=== PATIENT | female | born 2000 | race Caucasian/White ===

== ENCOUNTER 2020-05-25 06:43 | Outpatient (CLI) | payer OTHER, SELFPAY ==
[2020-05-25 07:38] LABS: Basophils Percent Auto 0.6 % (0.2-1.2); Eosinophils Absolute Auto 0.1 K/mm3 (0-0.3); Eosinophils Percent Auto 1.9 % (0-4.4); Hematocrit 39.9 % (37.0-47.0); Hemoglobin 12.9 g/dL (12.0-15.0); Immature Granulocyte Absolute 0.02 K/mm3 (0.00-0.031); Immature Granulocyte Percent A 0.3 % (0-0.5); Lymphocytes Absolute Auto 1.94 K/mm3 (0.9-3.2); Lymphocytes Percent Auto 28.2 % (18.3-44.2); Mean Corpuscular HGB Conc 32.3 g/dl (32-36); Mean Corpuscular Hemoglobin 28.2 pg (26-34); Mean Corpuscular Volume 87.3 fl (80-100); Mean Platelet Volume 10.9 fl (7.4-10.4); Monocytes Absolute Auto 0.5 K/mm3 (0.1-0.6); Monocytes Percent Auto 7.4 % (2.6-8.5); Neutrophils Absolute Auto 4.3 K/mm3 (1.3-6.7); Neutrophils Percent Auto 61.6 % (45.5-73.1); Platelet Count Result 291 k/mm3 (150-375); Red Blood Count 4.57 M/mm3 (4.2-5.4); Red Cell Distribution Width 13.4 % (11.5-14.5); White Blood Count 6.9 K/mm3 (4.5-10.0)
[2020-05-25 07:48] LABS: Hemoglobin A1C 4.5 % (<5.7)
[2020-05-25 07:54] LABS: Alanine Aminotransferase 42 U/L (4-35); Albumin Level 4.6 g/dL (3.5-5.1); Alkaline Phosphatase 136 U/L (38-126); Anion Gap 13.2 mmol/L (7-16); Aspartate Amino Transferase 31 U/L (14-36); Bilirubin,Total 0.4 mg/dL (0.2-1.3); Blood Urea Nitrogen 16 mg/dL (7-17); Calcium 9.1 mg/dL (8.4-10.2); Carbon Dioxide 26 mmol/L (22-30); Chloride 104 mmol/L (98-107); Cholesterol 171 mg/dL (0-200); Estimated Glomerular Filt Rate > 60; Glucose 100 mg/dL (65-105); HDL Direct 49 mg/dL; Potassium 4.2 mmol/L (3.4-5.0); Sodium 139 mmol/L (137-145); Triglycerides 122 mg/dL (<150)
[2020-05-25 08:05] LABS: LDL Cholesterol Direct 103 mg/dL
[2020-05-25 08:30] LABS: Iron 84 ug/dL (37-170)
[2020-05-25 08:39] LABS: Percent Iron Saturation 20 % (20-50)
[2020-05-25 08:41] LABS: Vitamin D 25 Hydroxy 34.2 ng/mL
[2020-05-25 08:52] LABS: Free T4 Free Thyroxine 1.01 ng/mL (0.78-2.19)
[2020-05-25 08:59] LABS: Folic Acid 6.5 ng/mL (2.76->20)
[2020-05-28 07:15] LABS: Thyroid Peroxidase Antibodies 24 IU/mL (<9)
== END 2020-05-25 06:44 | disposition home or self-care (01) ==
PROVIDERS: PCP Physician Assistant; Visit Provider Physician Assistant
DX: R53.83 Other fatigue (principal); Z13.220 Encounter for screening for lipoid disorders; Z13.1 Encounter for screening for diabetes mellitus
CPT/HCPCS: 36415; 80053; 80061; 82306; 82607; 82728; 82746; 83036; 83540; 83550; 84439; 84443; 85025; 86038; 86376

== ENCOUNTER 2020-07-02 09:22 | Outpatient (CLI) | payer OTHER, SELFPAY ==
[2020-07-02 10:02] LABS: Glucose 98 mg/dL (65-105)
[2020-07-07 05:34] LABS: Prolactin 7.3 ng/mL (***)
[2020-07-07 15:22] LABS: Testosterone Total 63 ng/dL (2-45)
[2020-07-08 02:44] LABS: Insulin Level Total 17.5 uIU/mL (<=19.6)
[2020-07-08 20:27] LABS: Estradiol, Ultrasensitive 54 pg/mL
== END 2020-07-02 09:23 | disposition home or self-care (01) ==
PROVIDERS: PCP Physician Assistant; Visit Provider Obstetrics & Gynecology
DX: N91.5 Oligomenorrhea, unspecified (principal)
CPT/HCPCS: 36415; 82670; 82947; 83001; 83525; 84146; 84402; 84403

== ENCOUNTER → 2021-11-14 01:58 | Outpatient (CLI) | payer OTHER, SELFPAY ==
[2021-11-14 19:53] LABS: SARS-CoV-2 RNA PCR Negative
== END ==
PROVIDERS: PCP Physician Assistant; Visit Provider Physician Assistant
DX: Z20.822 Contact with and (suspected) exposure to COVID-19 (principal)
CPT/HCPCS: C9803; U0003; U0005

== ENCOUNTER 2021-12-29 15:21 | Outpatient (CLI) | payer OTHER, SELFPAY ==
[2021-12-29 17:24] LABS: Basophils Percent Auto 0.4 % (0.2-1.2); Eosinophils Absolute Auto 0.1 K/mm3 (0-0.3); Eosinophils Percent Auto 1.3 % (0-4.4); Hematocrit 39.9 % (37.0-47.0); Hemoglobin 12.6 g/dL (12.0-15.0); Immature Granulocyte Absolute 0.03 K/mm3 (0.00-0.031); Immature Granulocyte Percent A 0.3 % (0-0.5); Lymphocytes Absolute Auto 1.94 K/mm3 (0.9-3.2); Lymphocytes Percent Auto 20.9 % (18.3-44.2); Mean Corpuscular HGB Conc 31.6 g/dl (32-36); Mean Corpuscular Hemoglobin 27.2 pg (26-34); Mean Platelet Volume 10.5 fl (7.4-10.4); Monocytes Absolute Auto 0.5 K/mm3 (0.1-0.6); Monocytes Percent Auto 5.3 % (2.6-8.5); Neutrophils Absolute Auto 6.7 K/mm3 (1.3-6.7); Neutrophils Percent Auto 71.8 % (45.5-73.1); Platelet Count Result 365 k/mm3 (150-375); Red Blood Count 4.64 M/mm3 (4.2-5.4); Red Cell Distribution Width 14.5 % (11.5-14.5); White Blood Count 9.3 K/mm3 (4.5-10.0)
[2021-12-29 17:37] LABS: Alanine Aminotransferase 42 U/L (4-35); Albumin Level 4.9 g/dL (3.5-5.1); Alkaline Phosphatase 172 U/L (38-126); Amylase 48 U/L (30-110); Anion Gap 9 mmol/L (8-16); Aspartate Amino Transferase 36 U/L (14-36); Bilirubin,Total 0.6 mg/dL (0.2-1.3); Blood Urea Nitrogen 11 mg/dL (7-17); Calcium 9.2 mg/dL (8.4-10.2); Carbon Dioxide 27 mmol/L (22-30); Chloride 104 mmol/L (98-107); Cholesterol 200 mg/dL (0-200); Estimated Glomerular Filt Rate > 60; Glucose 74 mg/dL (65-110); HDL Direct 55 mg/dL; Lipase 28 U/L (23-300); Sodium 140 mmol/L (137-145); Triglycerides 90 mg/dL (<150)
[2021-12-29 17:42] LABS: Hemoglobin A1C 4.7 % (<5.7)
[2021-12-29 17:49] LABS: LDL Cholesterol Direct 115 mg/dL
[2021-12-29 18:26] LABS: Free T4 Free Thyroxine 1.36 ng/mL (0.78-2.19)
== END 2021-12-29 15:22 | disposition home or self-care (01) ==
LOC: ANHLAB 15:24
PROVIDERS: PCP Physician Assistant; Visit Provider Physician Assistant
DX: R10.11 Right upper quadrant pain (principal); Z13.220 Encounter for screening for lipoid disorders; Z79.899 Other long term (current) drug therapy; Z13.1 Encounter for screening for diabetes mellitus
CPT/HCPCS: 36415; 80053; 80061; 82150; 83036; 83690; 84439; 84443; 85025

== ENCOUNTER 2022-01-01 15:10 | Outpatient (CLI) | payer OTHER, SELFPAY ==
--- NOTE | ~2022-01-01 | US_ITS ---
EXAMINATION: US abdomen limited EXAM DATE: 01/01/2022 15:41 INDICATION: RUQ pain TECHNIQUE: Multiple grayscale and Doppler images of the abdomen right upper quadrant were obtained (b y a technologist who performed the scan) and subsequently reviewed. Comparison is made to prior exami nation from 01/13/2012. FINDINGS: The pancreatic head and body are normal in appearance. The pancreatic tail is not visualized. The l iver has normal echogenicity and contour. There are no focal liver lesions identified. There is no evidence of intrahepatic biliary duct dilation. Portal venous flow was seen in the hepatopedal, nor mal direction and has normal Doppler waveform. No right-sided hydronephrosis. Common bile duct measures 6 mm, which is normal. The gallbladder wall is normal in thickness, with ex pected amount of distention. No sonographic evidence of pericholecystic fluid. There is no cholelit hiases. Technologist performing exam reports patient did not demonstrate sonographic Koo's sign. Please note that this sign is less reliable in patients who have received pain medication. IMPRESSION: Unremarkable abdominal ultrasound exam. Reviewed, dictated and finalized at location A. [employer]GER
== END 2022-01-01 15:11 | disposition home or self-care (01) ==
LOC: ANHIMG 15:15
PROVIDERS: PCP Physician Assistant; Visit Provider Physician Assistant
DX: R10.11 Right upper quadrant pain (principal)
CPT/HCPCS: 76705

== ENCOUNTER 2023-01-18 08:21 | Outpatient (CLI) | payer OTHER, SELFPAY ==
[2023-01-18 19:10] LABS: Basophils Percent Auto 0.4 % (0.2-1.2); Eosinophils Absolute Auto 0.1 K/mm3 (0-0.3); Eosinophils Percent Auto 1.5 % (0-4.4); Hematocrit 34.9 % (37.0-47.0); Hemoglobin 10.4 g/dL (12.0-15.0); Immature Granulocyte Absolute 0.02 K/mm3 (0.00-0.031); Immature Granulocyte Percent A 0.3 % (0-0.5); Lymphocytes Absolute Auto 2.02 K/mm3 (0.9-3.2); Lymphocytes Percent Auto 27.6 % (18.3-44.2); Mean Corpuscular HGB Conc 29.8 g/dl (32-36); Mean Corpuscular Hemoglobin 26.1 pg (26-34); Mean Corpuscular Volume 87.5 fl (80-100); Mean Platelet Volume 10.5 fl (7.4-10.4); Monocytes Absolute Auto 0.5 K/mm3 (0.1-0.6); Monocytes Percent Auto 7.1 % (2.6-8.5); Neutrophils Absolute Auto 4.6 K/mm3 (1.3-6.7); Neutrophils Percent Auto 63.1 % (45.5-73.1); Platelet Count Result 371 k/mm3 (150-375); Red Blood Count 3.99 M/mm3 (4.2-5.4); Red Cell Distribution Width 15.9 % (11.5-14.5); White Blood Count 7.3 K/mm3 (4.5-10.0)
[2023-01-18 19:17] LABS: Alanine Aminotransferase 59 U/L (6-35); Albumin Level 4.4 g/dL (3.5-5.1); Alkaline Phosphatase 150 U/L (38-126); Anion Gap 7 mmol/L (8-16); Aspartate Amino Transferase 53 U/L (14-36); Bilirubin,Total 0.8 mg/dL (0.2-1.3); Blood Urea Nitrogen 16 mg/dL (7-17); Calcium 8.9 mg/dL (8.4-10.2); Carbon Dioxide 28 mmol/L (22-30); Chloride 104 mmol/L (98-107); Cholesterol 188 mg/dL (0-200); Estimated Glomerular Filt Rate > 60; Glucose 103 mg/dL (65-110); HDL Direct 48 mg/dL; Potassium 4.3 mmol/L (3.4-5.0); Sodium 139 mmol/L (137-145); Triglycerides 126 mg/dL (<150)
[2023-01-18 19:28] LABS: LDL Cholesterol Direct 108 mg/dL
[2023-01-18 19:29] LABS: Vitamin D 25 Hydroxy 17.5 ng/mL
[2023-01-18 19:33] LABS: Hemoglobin A1C 4.8 % (<5.7); Hypochromasia 1+ (NORMAL); Platelet Estimate Adequate (Adequate); Schistocytes None Seen (NORMAL)
[2023-01-18 19:34] LABS: Anisocytosis 2+ (NORMAL)
[2023-01-18 19:36] LABS: Appearance Urine Clear (Clear); Bilirubin Urine Negative (Negative); Blood Urine 3+ (Negative); Color Urine Yellow (Yellow); Glucose Urine UA Negative (Negative); Ketones Urine Negative (Negative); Leukocyte Esterase Ur 1+ LEU/UL (NEGATIVE); Nitrate Urine Negative (Negative); Protein Urine 1+ mg/dL (Negative); Specific Grav Ur >= 1.030 (1.001-1.035); Urobilinogen Urine 0.2 mg/dL (<2.0); pH Urine 5.5 (5.0-9.0)
[2023-01-18 19:37] LABS: Add Urine Microscopic? YES
[2023-01-18 19:39] LABS: WBC Urine 51-100 /hpf (0-3)
[2023-01-18 19:40] LABS: Squamous Epithelial Cell Urine Moderate /hpf (Few)
[2023-01-18 19:41] LABS: Bacteria Urine 2+ /hpf
[2023-01-22 20:38] LABS: Insulin Level Total 26.8 uIU/mL (<=19.6)
== END 2023-01-18 08:22 | disposition home or self-care (01) ==
LOC: ANHBWCLAB 08:25
PROVIDERS: PCP Physician Assistant; Visit Provider Physician Assistant
DX: E55.9 Vitamin D deficiency, unspecified (principal); Z13.220 Encounter for screening for lipoid disorders; E66.01 Morbid (severe) obesity due to excess calories; Z79.899 Other long term (current) drug therapy
CPT/HCPCS: 36415; 80053; 80061; 81001; 82306; 83036; 83525; 84443; 85025

== ENCOUNTER 2023-06-27 16:09 | Outpatient (CLI) | payer OTHER, SELFPAY ==
--- NOTE | ~2023-06-27 | US_ITS ---
EXAMINATION: US pelvic complete w TV DATE: 06/27/2023 16:54 INDICATION: Menorrhagia. TECHNIQUE: Multiple transabdominal and transvaginal sonographic images of the pelvis were obtained. COMPARISON: None. FINDINGS: TRANSABDOMINAL ULTRASOUND: The uterus measures 8.2 x 2.8 x 3.5 cm. There is no free fluid in the pelvis. TRANSVAGINAL ULTRASOUND: The endometrial complex measures 11 mm in thickness. There are nabothian cysts in the cervix. The rig ht ovary measures 4.7 x 4.2 x 2.1 cm. The left ovary measures 3.3 x 2.5 x 2.9 cm. There is normal vas cular flow in the ovaries. IMPRESSION: 1. No etiology for menorrhagia. Reviewed, dictated and finalized at location E.
== END 2023-06-27 16:10 | disposition home or self-care (01) ==
PROVIDERS: PCP Physician Assistant; Visit Provider Obstetrics & Gynecology
DX: N92.1 Excessive and frequent menstruation with irregular cycle (principal)
CPT/HCPCS: 76830; 76856

== ENCOUNTER 2023-08-16 14:06 | Outpatient (CLI) | payer OTHER, SELFPAY ==
[2023-08-16 18:48] LABS: Basophils Percent Auto 0.4 % (0.2-1.2); Eosinophils Absolute Auto 0.1 K/mm3 (0-0.3); Eosinophils Percent Auto 1.5 % (0-4.4); Hemoglobin 10.4 g/dL (12.0-15.0); Immature Granulocyte Absolute 0.04 K/mm3 (0.00-0.031); Immature Granulocyte Percent A 0.4 % (0-0.5); Lymphocytes Absolute Auto 1.84 K/mm3 (0.9-3.2); Lymphocytes Percent Auto 20.1 % (18.3-44.2); Mean Corpuscular HGB Conc 28.9 g/dl (32-36); Mean Corpuscular Hemoglobin 23.3 pg (26-34); Mean Corpuscular Volume 80.5 fl (80-100); Mean Platelet Volume 10.8 fl (7.4-10.4); Monocytes Absolute Auto 0.4 K/mm3 (0.1-0.6); Monocytes Percent Auto 4.7 % (2.6-8.5); Neutrophils Absolute Auto 6.7 K/mm3 (1.3-6.7); Neutrophils Percent Auto 72.9 % (45.5-73.1); Platelet Count Result 438 k/mm3 (150-375); Red Blood Count 4.47 M/mm3 (4.2-5.4); Red Cell Distribution Width 16.9 % (11.5-14.5); White Blood Count 9.2 K/mm3 (4.5-10.0)
[2023-08-16 18:55] LABS: Alanine Aminotransferase 38 U/L (6-35); Albumin Level 4.6 g/dL (3.5-5.1); Alkaline Phosphatase 128 U/L (38-126); Anion Gap 9 mmol/L (8-16); Aspartate Amino Transferase 51 U/L (14-36); Bilirubin,Total 0.6 mg/dL (0.2-1.3); Blood Urea Nitrogen 14 mg/dL (7-17); Calcium 9.2 mg/dL (8.4-10.2); Carbon Dioxide 25 mmol/L (22-30); Chloride 104 mmol/L (98-107); Estimated Glomerular Filt Rate > 60; Glucose 125 mg/dL (65-110); Potassium 3.8 mmol/L (3.4-5.0); Sodium 138 mmol/L (137-145)
[2023-08-16 19:01] LABS: Iron 42 ug/dL (37-170)
[2023-08-16 19:10] LABS: Percent Iron Saturation 9 % (20-50)
[2023-08-16 19:37] LABS: Ferritin 7.65 ng/mL (6.24-137)
[2023-08-16 19:39] LABS: Platelet Estimate Increased (Adequate)
[2023-08-16 19:40] LABS: Anisocytosis 3+ (NORMAL); Schistocytes None Seen (NORMAL)
[2023-08-16 19:41] LABS: Hypochromasia 1+ (NORMAL)
== END 2023-08-16 14:07 | disposition home or self-care (01) ==
LOC: ANHBWCLAB 14:09
PROVIDERS: PCP Physician Assistant; Referring Provider Obstetrics & Gynecology; Visit Provider Physician Assistant
DX: D64.9 Anemia, unspecified (principal); Z79.899 Other long term (current) drug therapy
CPT/HCPCS: 36415; 80053; 82728; 83540; 83550; 85025

== ENCOUNTER 2023-09-04 09:01 | Outpatient (CLI) | payer OTHER, SELFPAY ==
--- NOTE | 2023-09-25 19:47 | WPDHOMESLEEP ---
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 She wakes herself up gasping for breath. Her problem started around 2019. She frequently awakens from sleep short of breath. She constantly wakes at night with heartburn, belching or coughing.??She occasionally snores, occasionally snores loudly enough that others complain. She frequently has trouble sleeping when she has a cold. She frequently wakes up gasping for breath during the night. She rarely has breathing problems at night. She frequently sweats excessively at night. She frequently notices her heart pounding or beating irregularly during the night. She constantly falls asleep during the day. She never falls asleep involuntarily, never falls asleep while driving. She never experiences loss of muscle tone with strong emotion. she frequently has daytime difficulties due to excessive sleepiness. She never feels paralyzed on waking or falling asleep. She occasionally experiences vivid dreams upon waking or falling asleep. She never feels afraid of going to sleep. She frequently has nightmares. She occasionally recalls her dreams. She occasionally has thoughts racing through her mind. She constantly feels sad or depressed. She constantly feels anxiety. She never notices parts of her body jerk. She never kicks during the night. She occasionally feels crawling or aching feelings in her legs. She occasionally feels leg pain at night. She rarely has morning jaw pain, and frequently grinds her teeth at night. She frequently feels bothered by pain during the day, is never awakened by pain during the night. She frequently wakes up feeling stiff in the morning, frequently wakes feeling sore or achy in the morning. She frequently awakens with pain in her neck, spine, or joints. She takes antacids regularly. Normal bedtime is variable, and the amount of time it takes her to fall asleep is also variable. She typically wakes up between 2 and 3 times during the night for a few minutes, often feels panic while awake. She drives to calm herself down and return to sleep. She reports getting between 3 and 8 hours of sleep per night. Her wake time is 5:30 a.m.. On weekends her wake time is 9:00 a.m.. At work, she wakes up 2 hearing calls or other people moving around in the building. On her days off she gets to sleep at home during the day following her shift. She takes naps in the afternoon or evening. A short nap lasting 10-15 minutes is not refreshing. She is usually drowsy on waking. She feels better in the evening compared to other times of day. Habits:??Tobacco: former smoker Caffeine: 1 serving per day. Alcohol: none Recreational substances: none PMFSH Past Medical History Medical History ADD (attention deficit disorder) Anxiety Asthma Depression Disorder of thyroid GERD (gastroesophageal reflux disease) H/O Jessie thyroiditis Hypertension PCOS (polycystic ovarian syndrome) Pneumonia Scoliosis Lagos-Antwan syndrome Surgical History Surgical History Hx of tonsillectomy [place] teeth removed x4 Family History Family History Mother Hypertension Grandparent Diabetes mellitus Cerebrovascular accident Hypertension Other Family history of malignant neoplasm Social History Social History Smoking status: Never sm
[2023-09-25 20:22] VITALS: BMI 54.7
== END 2023-09-05 09:44 | disposition home or self-care (01) ==
LOC: ANHCSM 09:04
PROVIDERS: PCP Physician Assistant
DX: G47.30 Sleep apnea, unspecified (principal); G47.10 Hypersomnia, unspecified; K21.9 Gastro-esophageal reflux disease without esophagitis; I10 Essential (primary) hypertension; J45.909 Unspecified asthma, uncomplicated
CPT/HCPCS: 95800

== ENCOUNTER 2025-04-05 13:19 | Outpatient (CLI) | payer OTHER, SELFPAY ==
--- OUTSIDE RECORDS SUMMARY | 2025-04-05 14:42 | XMS_ITS | Data Portability ---
[facility] Address [address] [place] [address] Care Team Providers Care Pumpman Name Role Phone LEANNA WATSON Primary Care Provider Unavailab le Assessment No assessment recorded. Plan of Treatment Reminders Order Date Submit Date Provider Last Modified By Organization Details Last Modified Time Details Appointments ANY 15 2024 10:15A M FRANCES Jaen Baptiste Not available Not available Not available Lab None recorded. Referral None recorded. Procedures home sleep testing (PROC) - last home study had little data due to inability to fall asleep. this time, lunesta will be used. 2023 024 [facility], [address] [place], [address], 01/07/2025 10:19:18 Surgeries None recorded. Imaging XR, wrist, 3 or more view [address], [address], 09/21/2024 09:40:14 Medication Orders Wegovy 0.25 mg/0.5 mL subcutane ous pen injector 2023 025 [id number], [address], [place], [id number], 04/01/2025 11:56:33 Lunesta 3 mg tablet 2023 024 [email or web address] [facility] #[id number], [address], [place], [id number], 04/20/2024 14:45:13 Patient TargetsNo targets recorded. Patient Instructions Encounter Date Encounter Id Patient Instructions Last Modified By Organization Details Last Modified Time 04/09/2024 [id number] A healthy lifestyle: care instructions [email or web address] Not available 04/09/2024 09:57:41 Reason for Referral None Reported. Problems Name Problem SNOMED Code Status Onset Date Resolution Date Notes Provider Name and Address Organization Details Recorded Time Body mass index 40+ - severely obese 673659181 Active 2023 FRANCES Jean Baptiste Attn: [employer],[address] [place], [address], [place] - [facility] 4 09:46:24 Obesity 502734297 Active 2023 FRANCES Jean Baptiste Attn: [employer],[address] [place], [address], [place] [facility] 4 09:46:25 Vitamin D deficiency 87954826 Active 2023 FRANCES Jean Baptiste Attn: [employer],[address] [place], [address], [place] [facility] 4 09:46:26 Obstructive sleep apnea syndrome 48801760 Active 2023 FRANCES Jean Baptiste Attn: [employer],[address] [place], [address], [place] [facility] 4 09:46:26 Benign essential hypertension 3816984 Active 2023 FRANCES Jean Baptiste Attn: [employer],[address] [place], [address], [place] [facility] 4 09:46:27 Wrist joint painful on movement 058446638 Active 2023 FRANCES Jean Baptiste Attn: [employer],[address] [place], [address], [place] [facility] 11:42:58 Insomnia 980836409 Active 2023 FRANCES Jean Baptiste Attn: [employer],[address] [facility], [place], [address], [facility] 11:44:43 Problem Notes None recorded. Procedures Surgical History Date Name Laterality Status Provider Name and Address Organization Details Recorded Time Tonsillectomy completed Ayesha Reis MA [facility] 04/09/2024 10:21:42 Imaging Results None recorded. Procedure Notes None recorded. Medical Equipment None Reported. Allergies No known drug allergies Medications Name Sig Start Date Stop Date Status Note LastModified by Organization Details LastModified Time valsartan 320 mg tablet Take 1 tablet every day by oral route. 2024 active Not Available Not Available Not Avai lable metoprolo l succinate ER 25 mg tablet,ex tended release 24 hr TAKE 1 TABLET BY MOUTH DAILY active Not Available Not Available No t Available ergocalci ferol (vitamin D2) 1,250 mcg (50,000 unit) capsule Take 1 capsule every week by oral route for 28 days. active needs refilled Not Available Not Available Not Available ketoconaz ole 2 % topical cream APPLY TO AFFECTED AREA OF THE NECK ONCE DAILY NEEDED ONLY 04/01 completed Not Available Not Available Not Available amoxicill in 875 mg-potass ium clavulana te 125 mg tablet TAKE 1 TABLET BY MOUTH EVERY 12 HOURS 04/01 completed Not Available Not Available Not Available valsartan 160 mg tablet TAKE 1 TABLET BY MOUTH DAILY active Not Available Not Available No t Available eszopiclo ne 2 mg tablet one tab po qhs PRN active Not Available Not Available No t Available Lunesta 3 mg tablet one tab po qhs PRN 04/20 completed Not Available Not Available Not Available ferrous gluconate 324 mg (37.5 mg iron) tablet 1 tab p.o. daily 2023 active prn Not Available Not Available Not Avai lable Wegovy 0.25 mg/0.5 mL subcutane ous pen injector Inject by subcutan eous route for 28 days. active Not Available Not Available No t Available Vitals Date Recorded Respiratory rate Systolic blood pressure Diastolic blood pressure Provider Name and Address Organization Details Last Updated DateTime 04/01/2025 18 /min 150 mm[Hg] 96 mm[Hg] FRANCES Jean Baptiste Attn: Accounting, [address] [facility], [place], [address], [facility] 04/01/2025 12:32:06 Date Recorded Body height Body mass index (BMI) Body weight Oxygen saturation Oxygen saturation in Arterial blood by Pulse oximetry Heart rate Systolic blood pressure Diastolic blood pressure Provider Name and Address Organization Details Last Updated DateTime 172.72 cm 58.2 kg/m2 408268. 88 g 97 % 97 % 98 /min 162 mm[Hg] 90 mm[Hg] Ayesha Reis MA [facility] 11:59:01 Date Recorded Body height Body mass index (BMI) Body weight Respiratory rate Oxygen saturation Oxygen saturation in Arterial blood by Pulse oximetry Heart rate Systolic blood pressure Diastolic blood pressure Provider Name and Address Organization Details Last Updated DateTime 172.72 cm 59 kg/m2 498183. 92 g 20 /min 97 % 97 % 88 /min 142 mm[Hg] 98 mm[Hg] Ayesha Reis MA [facility] 09:29:45 Social History Question Answer Notes LastModified by Organizat ion Details LastModified Time Tobacco Smoking Status Never Smoker Ayesha Reis MA null, [facility] 04/09/2024 09:25:45 Do You Have An Advance Directive? No Information not available 04/09/2024 Are You Blind Or Do You Have Difficulty Seeing? No Contacts Information not available 04/09/2024 What Is Your Level Of Caffeine Consumption? Moderate Information not available 04/09/2024 In The 14 Days Before Symptom Onset, Have You Had Close Contact With A Laboratory-confir med COVID-19 While That Case Was Ill? No Information not available 04/08/2024 In The 14 Days Before Symptom Onset, Have You Had Close Contact With A Person Who Is Under Investigation For COVID-19 While That Person Was Ill? No Information not available 04/08/2024 Have You Been To An Area Known To Be High Risk For COVID-19? No Information not available 04/08/2024 Are You Deaf Or Do You Have Serious Difficulty Hearing? No Hearing Damage But Nothing Diagnosed Information not available 04/09/2024 What Type Of Diet Are You Following? REGULAR Information not available 04/09/2024 Are There Any Guns Present In Your Home? No Information not available 04/09/2024 What Was The Date Of Your Most Recent Tobacco Screening? 04/01/2025 Information not available 04/01/2025 Do You Use Your Seat Belt Or Car Seat Routinely? Yes Information not available 04/08/2024 Do You Have Smoke And Carbon Monoxide Detectors In Your Home? Yes Information not available 04/08/2024 Do You Use Sunscreen Routinely? Yes Information not available 04/09/2024 Has Tobacco Cessation Counseling Been Provided? Yes Information not available 04/08/2024 On What Date Was Tobacco Cessation Counseling Provided? 04/01/2025 Information not available 04/01/2025 Sex: Female Functional Status Question Answer Note LastModified by Organizat ion Details LastModified Time Do you use any illicit or recreational drugs? No Information not available 04/09/2024 Do you or have you ever used any other forms of tobacco or nicotine? No Information not available 04/09/2024 What is your level of alcohol consumption? None Information not available 04/09/2024 Are you currently employed? Yes Information not available 04/09/2024 Are you able to care for yourself? Yes Information not available 04/08/2024 Mental Status None recorded. Family History Relationship Description Onset Age of this Age Resolved Age Notes LastModified by Organization Details LastModified Time Mother Asthma [email or web address] Not available 04/09/2024 10:22:18 Mother Heart disease [email or web address] Not available 2023 10:22:23 Mother Hypertensive disorder [email or web address] Not available 2023 10:22:27 Medical History Condition Response Coronary Artery Disease N Other N High Blood Pressure Y Atrial Fibrillation N Kidney or Bladder Problems N Thyroid Problems N GI Problems N Depression N COPD N Blood Clots N Skin Problems N Anemia N Heart Attack ([place]) N Anxiety Disorder N Diabetes N Muscle, Joint, or Bone Problems N Seizures/Epilepsy N Acid Reflux (GERD) N Cancer N Stroke N Asthma N Allergies N High Cholesterol N Hepatitis N Liver Disease N Headaches N Heart Failure N Osteoporosis N Gynecological History Statement/Question Response Menses Monthly Y Duration of Flow (days) Date of LMP 04/01/2025 LMP Definite Obstetrics History GPAL:G 0 P 0 0 0 0 Immunizations Vaccine Type Date Status Note Provider Demian e and Address Organization Details Recorded Time COVID-19, mRNA, LNP-S, PF, 30 mcg/0.3 mL dose 11/04/2020 completed MALIK Thom[place], [place] [facility] 08/07/2024 15:51:45 COVID-19, mRNA, LNP-S, PF, 30 mcg/0.3 mL dose 09/14/2021 [place] MALIK [place], [place] [facility] 08/07/2024 15:51:45 COVID-19, mRNA, LNP-S, PF, 30 mcg/0.3 mL dose 10/14/2020 completed MALIK [place], [place] [facility] 08/07/2024 15:51:45 Influenza, split virus, quadrivalent, PF 08/11/2020 completed MALIK Thom[place], [place] [facility] 08/07/2024 15:51:45 Past Encounters Encounter ID Performer Location Encounter Start Date Encounter Closed Date Diagnosis/Indication Diagnosis SNOMED-CT Code Diagnosis ICD10 Code Diagnosis Note [id number] Fuentes Michael MD [facility] [place] [address] [place] [address] 04/09/2024 09:07:31 04/09/2024 11:02:32 Obesity 164066221 E66.8 discussed healthy diet, exercise, controllin g carbohydra tammy and added sugars in the diet Body mass index 40+ - severely obese 823516831 Z68.43 start wegovy injectable therapy. no personal or family hx of Medullary thyroid cancer or MEN conditions . Benign ess ential hypertension 6693893 I10 BP is 142/98 on dual agents of metoprolol ER 25mg daily and valsartan 160mg daily . she will monitor her pressures at work and report back if she's running this level or higher. she is so fatigued right now and feels her bp is up from that stress. Obstructiv e sleep apnea syndrome 47419088 G47.33 refer for home sleep study testing. 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 Wrist join t painful on movement 499639974 M25.539 check xray left wrist for baseline evaluation . [id number] Fuentes Michael MD [facility] [place] [address] [facility] [address] [place] [address] 04/01/2025 11:40:33 04/01/2025 13:54:13 Benign essential hypertension 0731377 I10 boost to 320mg daily Obstructiv e sleep apnea syndrome 21810147 G47.33 refer for home sleep study testing. plans for zepbound therapy once sleep study results are obtained. Insomnia 912993358 G47.0 0 start lunesta 3mg qhs for sleep to help with shift worker syndrome and apnea while she gets new sleep study ordered. Vitamin D deficiency 347 05480 E55.9 continue high dose weekly Rx Body mass index 40+ - severely obese 046404546 Z68.43 Cholesterol screening 27 3620618 Z13.220 Diabetes m ellitus screening 787433713 Z13.1 Long-term current use of drug therapy 180009461 Z79.899 [facility] 036246297 Z00.00 Obese class III 33025201 5 E66.813 Health Concerns Section Related Observation LastModified by Organization Detai ls LastModified Time None Recorded Concern Status LastModified by Organization Details LastModified Time None Recorded Advance Directives Directive N: Payers Encounter Date Sequence Insurance Name Policy Number Policy Barrett Covered Member ID Barrett Member ID Guarantor Name 04/09/2024 2 [employer] (PPO) [id number] Edilma Puente [id number] Francisco Puente 04/09/2024 1 [employer]O [id number] Francisco Puente [id number] Francisco Puente Notes Date Note Type Note Provider Name and Address Organization Details Recorded Time 4 text/html HypertensionReported bypatient.Notes:pt is taking valsartan 160mg daily and metoprolol ER 25mg daily.InsomniaReported bypatient.Quality:symptom s worse in the evening Severity:worsening; severe Duration:frequent Modifying Factors:shift worker. Associated Symptoms:snoring;sleep apneaObstructive Sleep Apnea F/UReported bypatient.Notes:pt needs sleep study ordered again. she is so fatigued and tired during her day and witnessed apnea. she isn't able to lose weight she needs to. she is tired but shift worker syndrome makes sleep often difficult. Left wrist pain , worse with movement. newer onset. 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 FRANCES Jean Baptiste Attn: Accounting,[address] [place], [address], [facility] 04/30/2024 11:46:04 OBGyn Episode No OBEpisode recorded.
--- OUTSIDE RECORDS SUMMARY | 2025-04-05 14:42 | XMS_ITS | Data Portability ---
Author Organization [place] - [facility], Main Office Address [address] [place] [address] Assessment No assessment recorded. Plan of Treatment Reminders Order Date Submit Date Provider Last Modified By Organization Details Last Modified Time Details Appointments None recorded. Lab CBC w/ auto diff 2022 023 [facility] (Lab), [address] [place] [address], [id number], 3 10:40:26 CMP, serum or plasma 2022 023 [facility] (Lab), [address] [place] [address], [id number], 3 10:40:26 urinalysis, dipstick [address] (Lab), [address] [place] [address], [address], 3 11:13:11 TSH, serum or plasma [address] (Lab), [address] [place] [address], [id number], 3 11:13:11 insulin, serum [address] (Lab), [address] [place] [address], [id number], 3 11:13:12 lipid panel, serum [address] (Lab), [address] [place] [address], [place], [address], 3 11:13:12 HbA1c (hemoglobin A1c), blood 2022 023 [email or web address] 4 [facility] (Lab), [address] [address], [place], [address], 3 11:13:12 Referral 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 Surgeries None recorded. Imaging home sleep study - Per [facility] no auth required REF # [id number] 2022 023 [facility] ([facility]), [address] [facility], [place], [address], 3 16:45:26 Medication Orders valsartan 160 mg tablet 2022 023 [facility] #[id number], [address], [place], [id number], 3 12:00:07 ferrous gluconate 324 mg (38 mg iron) tablet 2022 023 [facility] #[id number], [address], [place], [id number], 3 12:00:26 ketoconazol e 2 % topical cream 2022 023 [facility] #[id number], [address], [place], [id number], 3 11:56:04 metoprolol succinate ER 25 mg tablet,exte nded release 24 hr 2022 023 [facility] #[id number], [address] [place], [place], [id number], 3 11:56:03 Patient TargetsNo targets recorded. Patient InstructionsNo instructions recorded. 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 [email or web address] [id number] [facility] ([facility]) [address] [place] [address] [place] [address], [phone], 12/26/2022 20:39:06 10/03/20 23 09/04/2023 home sleep study No observ ation record ed. [email or web address] [address], [address], 11/14/2023 10:11:21 Result Notes None recorded. Problems Name Problem SNOMED Code Status Onset Date Resolution Date Notes Provider Name and Address Organization Details Recorded Time Heartburn 34306685 Active 2018 Not Available [facility] 3 20:38:21 Diabetes mellitus screening Active 2021 Not Available [facility] 3 20:38:21 Polycystic ovary syndrome 876859786 Active 2021 Not Available [facility] 3 20:38:21 Headache 48277588 Active 2018 Not Available [facility] 3 20:38:21 Long-term drug therapy Active 2021 Not Available [facility] 3 20:38:21 Cholestero l screening Active 2021 Not Available [facility] 3 20:38:22 Right upper quadrant pain 096097769 Active 2021 Not Available [facility] 3 20:38:22 Thyroid function tests abnormal 095017599 Active 2021 Not Available [facility] 3 20:38:22 Attention deficit hyperactiv ity disorder, predominan tly inattentiv e type 18127162 Completed 201801/26/2019 Not Available [facility] 3 20:38:22 Depressive disorder 97200162 Active 2018 Not Available [facility] 3 20:38:22 Hypertensi ve disorder 62850551 Active 2021 Not Available [facility] 3 20:38:22 Upper abdominal pain 97318517 Active 2021 Not Available [facility] 3 20:38:22 Benign essential hypertensi on 2822370 Active 2022 FRANCES Jean Baptiste [address], [place], [address] , [employer] 3 11:52:41 Morbid obesity 292353453 Active 2022 FRANCES Jean Baptiste [address], [place], [address] , [employer] 3 11:52:53 Apnea 1568457 Active 2022 FRANCES Jean Baptiste [address], [place], [address] , [employer] 3 11:53:02 Decreased hearing 688777427 Active 2022 FRANCES Jean Baptiste [address], [place], [address] , [employer] 3 11:53:30 Candidiasi s of skin 31514116 Active 2022 FRANCES Jean Baptiste [address], [place], [address] , [employer] 3 11:54:52 Sleep apnea 61879811 Active 2022 FRANCES Jean Baptiste [address], [place], [address] , [employer] 3 12:37:38 Vitamin D deficiency 44147509 Active 2022 FRANCES Jean Baptiste [address] [address], [place], [address] , [facility] 3 16:44:31 Iron deficiency anemia 79215833 Active 2022 FRANCES Jean Baptiste [address] [facility] [address], [place], [address] , [facility] 3 14:02:43 Anemia 414534578 Active 2022 FRANCES Jean Baptiste [address] [address], [place], [address] , [facility] 3 14:02:48 Problem Notes None recorded. Procedures Surgical History Date Name Laterality Status Provider Name and Address Organization Details Recorded Time Tonsillectomy completed Not Available [facility] 12/26/2022 20:37:57 Imaging Results None recorded. Procedure Notes None recorded. Medical Equipment None Reported. Allergies No known drug allergies Medications Name Sig Start Date Stop Date Status Note LastModified by Organization Details LastModified Time metformin 500 mg tablet TAKE 1 TABLET BY MOUTH TWICE DAILY 12/31 completed Not Available Not Available Not Available prednisone 10 mg tablet TK 1 T PO BID 02/08 completed Not Available Not Available Not Available azithromyci n 250 mg tablet 01/26 completed Not Available Not Available Not Available prednisone 20 mg tablet take 3 tabs po daily x 2 days, then 2 tabs po daily x 2 days, then 1 tab po daily x 2 days, then 1/2 tab po daily x 2 days active Not Available Not Available No t Available Tubersol 5 tub. unit/0.1 mL intradermal injection solution inject .1ml 07/13 completed [facility]: [address]21 Not Available Not Available Not Available ciprofloxac in 500 mg tablet TAKE 1 TABLET BY MOUTH ONCE 06/28 completed Not Available Not Available Not Available amoxicillin 875 mg tablet Take 1 tablet every 12 hours by oral route. active Not Available Not Available No t Available hydrocodone 7.5 mg-acetamin ophen 325 mg tablet 05/23 completed Not Available Not Available Not Available prednisone 50 mg tablet Take 1 tablet every day by oral route for 5 days. active Not Available Not Available No t Available progesteron e micronized 200 mg capsule TAKE 1 CAPLET BY MOUTH EVERY NIGHT AT BEDTIME FOR 7 NIGHTS active Not Available Not Available No t Available metoprolol succinate ER 25 mg tablet,exte nded release 24 hr TAKE 1 TABLET BY MOUTH EVERY DAY active Not Available Not Available No t Available ergocalcife rol (vitamin D2) 1,250 mcg (50,000 unit) capsule TAKE 1 CAPSULE BY MOUTH EVERY WEEK active Not Available Not Available No t Available norethindro ne (contracept sally) 0.35 mg tablet TAKE 1 TABLET BY MOUTH DAILY 12/31 completed Not Available Not Available Not Available ketoconazol e 2 % topical cream APPLY TO THE AFFECTED AREA(S) of neck line BY TOPICAL ROUTE ONCE DAILY active Not Available Not Available No t Available valsartan 160 mg tablet TAKE 1 TABLET BY MOUTH EVERY DAY active Not Available Not Available No t Available ProAir HFA 90 mcg/actuati on aerosol inhaler Inhale 2 puffs every 4-6 hours by inhalatio n route as needed. active Not Available Not Available No t Available ferrous gluconate 324 mg (38 mg iron) tablet TAKE 1 TABLET BY MOUTH DAILY active Not Available Not Available No t Available Afluria Qd 2019- (36 mos up)(PF)60 mcg (15 mcg x4)/0.5 mL IM syringe ADM 0.5ML IM UTD 12/01 completed Not Available Not Available Not Available Vitals Date Recorded Body mass index (BMI) Body height Oxygen saturation Oxygen saturation in Arterial blood by Pulse oximetry Heart rate Respiratory rate Body temperature Body weight Systolic blood pressure Diastolic blood pressure Provider Name and Address Organization Details Last Updated DateTime 2 51.8 kg/m2 172.72 cm 97 % 97 % 97 /min 16 /min 98.2 [degF] 685476 g 118 mm[Hg] 78 mm[Hg] Not Available [facility] 3 20:38:04 Date Recorded Body temperature Body height Respiratory rate Heart rate Oxygen saturation Oxygen saturation in Arterial blood by Pulse oximetry Systolic blood pressure Diastolic blood pressure Provider Name and Address Organization Details Last Updated DateTime 3 98.4 [degF] 172.72 cm 16 /min 120 /min 98 % 98 % 142 mm[Hg] 92 mm[Hg] ESTHER Donnelly [facility] 3 11:37:47 Date Recorded Systolic blood pressure Diastolic blood pressure Systolic blood pressure Diastolic blood pressure Provider Name and Address Organization Details Last Updated DateTime 08/26/2023 140 mm[Hg] 100 mm[Hg] 140 mm[Hg] 100 mm[Hg] FRANCES Harris [address] [facility] [facility] [address], [place], [address] , [facility] 3 11:58:44 Date Recorded Body height Body mass index (BMI) Body weight Body temperature Heart rate Oxygen saturation Oxygen saturation in Arterial blood by Pulse oximetry Systolic blood pressure Diastolic blood pressure Provider Name and Address Organization Details Last Updated DateTime 172.72 cm 45.9 kg/m2 026247. 9 g 97.4 [degF] 82 /min 98 % 98 % 136 mm[Hg] 80 mm[Hg] Iva Fox RN [facility] 11:42:04 Social History Question Answer Notes LastModified by Organizat ion Details LastModified Time Tobacco Smoking Status Never Smoker Not Available [facility] 12/26/2022 20:37:49 Do You Have An Advance Directive? No [id number] Information not available 12/26/2022 What Is Your Level Of Caffeine Consumption? Moderate [id number] Information not available 12/26/2022 In The 14 Days Before Symptom Onset, Have You Had Close Contact With A Laboratory-confirm ed COVID-19 While That Case Was Ill? No [id number] Information not available 12/26/2022 In The 14 Days Before Symptom Onset, Have You Had Close Contact With A Person Who Is Under Investigation For COVID-19 While That Person Was Ill? No [id number] Information not available 12/26/2022 What Type Of Diet Are You Following? REGULAR [id number] Information not available 12/26/2022 Have There Been Any Changes To Your Family Or Social Situation? No [id number] Information not available 12/26/2022 Are There Any Guns Present In Your Home? No [id number] Information not available 12/26/2022 Do You Use Insect Repellent Routinely? No [email or web address] Information not available 12/28/2022 Do You Have A Medical Power Of Urologic Surgeon? No [email or web address] Information not available 12/28/2022 What Is Your Relationship Status? Single [id number] Information not available 12/26/2022 Do You Use Your Seat Belt Or Car Seat Routinely? Yes [id number] Information not available 12/26/2022 Do You Have Smoke And Carbon Monoxide Detectors In Your Home? Yes [id number] 4065 Information not available 12/26/2022 Do You Use Sunscreen Routinely? No [id number].[id number] Information not available 12/26/2022 Have You Recently Traveled Abroad? No [id number].[id number] Information not available 12/26/2022 Do You Have Any Dietary Restrictions? No [id number].[id number] Information not available 12/26/2022 Sex: Unknown Functional Status Question Answer Note LastModified by [employer] ion Details LastModified Time Do you use any illicit or recreational drugs? No [id number] 26 Information not available 12/26/2022 Do you or have you ever used any other forms of tobacco or nicotine? No [id number].[id number] 26 Information not available 12/26/2022 What is your level of alcohol consumption? None [id number] 26 Information not available 12/26/2022 What is your exercise level? Moderate [id number].[id number] 26 Information not available 12/26/2022 Mental Status None recorded. Family History Relationship Description Onset Age of this Age Resolved Age Notes LastModified by Organization Details LastModified Time Mother Asthma [id number] Not available 12/26/2022 20:37:58 Mother Hypertensive disorder [id number] Not available 12/26/2022 20:37:58 Maternal Grandmother Hypertensive disorder [id number] [id number] Not available 12/26/2022 20:37:58 Maternal Grandmother Heart disease [id number] [id number] Not available 12/26/2022 20:37:58 Maternal Grandfather Family history of malignant neoplasm [id number].720 [id number] Not available 12/26/2022 20:37:58 Paternal Grandmother Diabetes mellitus [id number] [id number] Not available 12/26/2022 20:37:58 Paternal Grandfather Family history of malignant neoplasm [id number].688 [id number] Not available 12/26/2022 20:37:58 Medical History Condition Response BOWEL PROBLEMS Y DEPRESSION (INCLUDING POST ) Y OBESITY Y ENT Y HEARTBURN / REFLUX Y ASTHMA Y HEADACHES/MIGRAINES Y Gynecological HistoryNo gynecological history recorded. Obstetrics History GPAL:G 0 P 0 0 0 0 Immunizations Vaccine Type Date Status Note Provider Nam e and Address Organization Details Recorded Time Influenza, split virus, quadrivalent, preservative 0 completed Not Available [facility] 12/26/2022 20:39:02 Past Encounters Encounter ID Performer Location Encounter Start Date Encounter Closed Date Diagnosis/Indication Diagnosis SNOMED-CT Code Diagnosis ICD10 Code Diagnosis Note [id number] FRANCES Jean Baptiste [facility] [place] [address] [place] [address] 12/29/2021 00:00:00 01/25/2022 17:30:49 [id number] FRANCES Jean Baptiste [facility] [place] [address] [place] [address] 12/31/2022 11:32:19 12/31/2022 12:12:27 Adult health examination 780392175 Z00.01 well exam completed. all labs due fasting. Benign ess ential hypertension 1782871 I10 refill metoprolol ER 25mg daily Long-term drug therapy 183773460 Z79.899 Morbid obesity 079563842 E66.01 Decreased hearing 625683 001 H91.90 refer to audiologis t Cholesterol screening 27 1386043 Z13.220 Diabetes m ellitus screening 684444901 Z13.1 Candidiasis of skin 4988 3006 B37.2 rx for antifungal cream to neckline areas PRN Sleep apnea 29614868 G47 .30 refer for home sleep study. witnessed apnea. [id number] FRANCES Jean Baptiste [facility] [place] [address] [place] [address] 08/26/2023 11:19:54 08/26/2023 12:03:47 Benign essential hypertension 9400579 I10 continue metoprolol ER 25mg daily, add valsartan 160mg daily; f/u 5 weeks for recheck Iron defic iency anemia 56749576 D50.9 start ferrous gluconate 324mg daily x 3 months . Sleep apnea 03639414 G47 .30 sleep lab never called to schedule her. order printed for her to call them. Body mass index 40+ - severely obese 028269763 Z68.42 Health Concerns Section Related Observation LastModified by Organization Detai ls LastModified Time None Recorded Concern Status LastModified by Organization Details LastModified Time None Recorded Advance Directives Directive N: Payers Encounter Date Sequence Insurance Name Policy Number Policy Barrett Covered Member ID Barrett Member ID Guarantor Name 12/31/2022 1 [facility] [id number] Edilma Puente [id number] Francisco Puente 08/26/2023 1 [facility] [id number] Edilma Puente [id number] Francisco Puente Notes Date Note Type Note Provider Name and Address Organization Details Recorded Time 022 text/ht ml Abdominal PainReported bypatient.Location:RUQ Quality:pain;bloating;cramping;sharp Severity:no pain Duration:intermittent; started: (1 month) Onset/Timing:gone now Aggravating Factors:eating Alleviating Factors:nothing gives relief Associated Symptoms:no fever; no chills; no blood in the urine; no shortness of breath; no constipation; normal stool; no blood in stool; normal appetite;heartburn;nausea;vomiting;d iarrhea Other:denies possible Pain Radiation:to the arm right(shoulder) Previous Tests, Treatment and/or Diagnostic Procedures:noneNotes:Pt reports she has intermittent RUQ pain x 1 month. Pain is intermittent, currently dull, achy. Pain becomes sharp and stabbing at its worst. She has had 7 episodes of RUQ abdominal pain. She notes associated nausea and vomiting with episodes. States the pain is worse with fatty foods. Patient notes associated diarrhea with a yellow coloring. Pain is also referred to her right shoulder. Pt still has appendixAnxiety/DepressionReported bypatient.Quality:symptoms improved Severity:denies suicidal ideations; able to maintain relationships; does not interfere with activities of daily living Context:no major life stressors Modifying Factors:not doing anything for it at the moment Associated Symptoms:denies homicidal ideations; no significant weight gain; no significant weight loss; no visual/auditory hallucinations; no delusions; no shortness of breath; mood good; no anxiety; no crying spells; no panic; no isolation; sleeping well; appetite good; energy good; no apathy; maintaining functionalityHypertensionReported bypatient.Duration:has noted for months Onset/Timing:better Alleviating Factors:medication Self Care:not under emotional stress Associated Symptoms:no shortness of breath; no palpitations; no decline in exercise capacity; no snoring;fatigue Not Available [place] [employer] [place] [facility] 01/25/2022 17:30:49 023 text/ht ml Anxiety/DepressionReported bypatient.Severity:denies suicidal ideations; able to maintain relationships; does not interfere with activities of daily living Duration:symptoms lasting over 2 weeks Onset/Timing:still present Context:no major life stressors Associated Symptoms:denies homicidal ideations; no significant weight gain; no significant weight loss; no visual/auditory hallucinations; no delusions; no shortness of breathNotes:She states she is doing ok w/out medication.HypertensionReported bypatient.Alleviating Factors:has been off of it over one year now Associated Symptoms:no shortness of breath; no palpitations; no decline in exercise capacity; no snoring;fatigue Wellness FRANCES Jean Baptiste [address] [address], [place], [address], [facility] [employer] [place] [employer] 01/10/2023 09:32:35 023 text/ht ml Anxiety/DepressionReported bypatient.Severity:denies suicidal ideations; able to maintain relationships; does not interfere with activities of daily living Duration:symptoms lasting over 2 weeks Onset/Timing:still present Context:no major life stressors Associated Symptoms:denies homicidal ideations; no significant weight gain; no significant weight loss; no visual/auditory hallucinations; no delusions; no shortness of breathNotes:She states she is doing ok w/out medication.HypertensionReported bypatient.Alleviating Factors:has been off of it over one year now Associated Symptoms:no shortness of breath; no palpitations; no decline in exercise capacity; no snoring;fatigue routine FRANCES Jean Baptiste [address] [facility], [address] [address], [place], [address], [place] [facility] 08/26/2023 13:54:09 OBGyn Episode No OBEpisode recorded.
--- OUTSIDE RECORDS SUMMARY | 2025-04-05 14:43 | XMS_ITS | Clinical Summary ---
Author Organization [facility] Address [address] [place] [address] Care Team Providers Care Hardware Installation Coordinator Name Role Phone Pa Lehman MD Primary Care Provider [phone] Source Comments [facility],non-owned Affiliates and Associated Physician Practices is amultiple site organization consisting of ambulatory clinics and hospital sitesin [place], [place], [place] and [place]. This disclosure is being madepursuant to the Care Everywhere program and may not contain all information available regarding this patient. Last updated 18.[facility] Allergies No known active allergies Medications * Be aware that medications may not be up to date on this document. Alwaysverify current medications with the patient. acetaminophen (TYLENOL) 500 MG tablet Take 500 mg by mouth every 4 hours as needed for Fever or Pain Maximum allowable Acetaminophen amount = 4 Grams (4000 mg) / 24 hours. Active Active Problems Problem Noted Date Diagnosed Date Hip pain, bilateral 10/26/2011 Overview (10/26/2011): For the last 4 days. Hurts to walk. Knee pain, right 10/26/2011 Overview (10/26/2011): With walking in last 4 days. 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 Etiology unclear. Has been given IVIG to treat [place], precluding immediate recheck. Recommend rechecking titers and total IgM in a few months. EM major secondary to either HSV or Mycoplasma or both: skin and mucosal lesions: continuing to improve -etiology most likely mycoplasma, but positive IgM serology for HSV is suggestive of acute exposure. The HSV PCR of cutaneous lesions is not validated nor very sensitive test. It is Possible that both IgM's being elevated represents some sort of reactive gammopathy, however, since she has rec'd IVIG, convalescent titers will not be useful for interpretation. Acute renal insufficiency 10/03/2011 Overview (10/03/2011): Etiology unclear - SJ syndrome vs. Acyclovir vs. IVIG. Cr 0.49 - 0.92 now improving. Ref. Range 10/01/2011 05:36 10/02/2011 05:50 Creatinine Latest Range: 0.31-0.88 mg/dl 0.78 0.69 Associated mild hyperkalemia and hyperphosphatemia, both resolving. Associated hypertension - will treat for a few weeks. Follow up with nephrology. Isradipine switched to Enalapril as per HTN problem above Pneumonia 09/29/2011 Overview (10/04/2011): Francisco had crackles on exam early in admission. On cxr, airway disease without consolidation, mycoplasma IgM elevated. Treated with a 10 day course of azithromycin. Initially on Advair (has a prior history of wheezing but no dx of asthma). Advair was d/c'd to avoid topical steroid effect in mouth. She used albuterol prn for cough symptoms. On discharge, lung exam was clear. Hypertension 09/29/2011 Overview (10/04/2011): Systolics persistently 130's. Unclear if this is kidney involvement secondary to SJD/EM or secondary to IVIG tx. On 09/29 during IVIG infusion SBP increased to 140's-150s and DBP increased to 80's-104 (max x1). CMP drawn with elevation of Cr to 0.92 (Cr on 09/23 0.49), also with elevated K 5.2. IVIG held. D/w attending and renal on 09/29. Per renal recs: isradipine 2.5mg for elevated SBP >130. Recheck BP one hour after dose given. However, prior to giving this dose BP had decreased so dose held. Urine output has been adequate, UA wnl, spec grav 1.010. Renal US with mild echogenic kidneys. Per renal consult: started isradipine 2mg PO BID (hold for SBP < 100) on 10/02. Cr improving. On 10/03 patient reported a 2hr rash after taking Isradipine - per renal recs, will switch to Enalapril 2.5mg PO BID. Patient d/c'd home on enalapril 2.5mg po bid and will follow with renal as outpatient. The renal nurse instructed mother on the use of a blood pressure cuff prior to discharge. Mom is to monitor BP at home. 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 She subsequently developed a transient rash of the torso and extremities, oral lesions, right conjunctivitis, and diarrhea. One day prior to admission, mom contacted PMD, prednisone and azithromycin were prescribed. She presented to OSH on the day of admission due to continued temperatures, decreased PO intake secondary to oral lesions, and diarrhea. Preliminary studies including cbc + cmp (wnl), blood cx, cxr and pain control (dilaudid) started prior to transfer to . She was empirically started on acycolovir and continued azithromycin that was started by pmd. CXR obstained revealed perihilar infiltrates c/w mycoplasma. Pain was controlled with oxycodone, scheduled tylenol was later added when pain control was suboptimal. O'Inna solution swish and spit was also given for oral relief. Patient experienced worsening rash (target lesions) on extremities and trunk and labial lesions and was transferred to the picu for concern for SJS vs disseminated HSV. Derm and opthalmology consulted at that time. Lab results as follows; Mycoplasma serology (elevated IgM, nl IgG), HSV serology (elevated IgM, nl IgG), hsv PCR (neg). Given the fact that the diagnosis was not clear, Infectious Disease was consulted. They believed that history, physical exam, and lab findings were consistent with EM secondary to mycoplasma pneumonia infection. They recommended a 10 day course of azithromycin and a 5 day course of acyclovir. Additionally they recommended three days of IVIG. Francisco received one course of IVIG. Due to elevated blood pressures (see separate problem list) during her second day of IVIG, treatment was stopped. At that time, risks and benefits were considered and since improvement was noted on physical exam the decision was made not to resume treatment. On discharge, Francisco completed 10 day course of azithromycin, pain was controlled with tylenol and o'nilsa's with lidocaine and was able to take PO. She will continue to use erythromycin ointment in her eyes per opthalmology and will be following in their clinic as an outpatient. Resolved Problems Problem Noted Date Diagnosed Date Resolved Date Hyperkalemia 09/29/2011 10/03/2011 Overview (10/02/2011): Increase of K from 4.6 to 5.2 in face of reduced GFR. Removed K from IVF. Repeat K today on BMP 6.3, no peaked T-waves on telemetry. Stat venous K sent, 4.6. Phos also noted up, c/w reduced renal GFR. Creatinine 0.75, improving. Plan: BMP and Phos every other day Constipation 09/29/2011 10/04/2011 Overview (10/03/2011): No BM in 7 days. On opiate. No abdominal pain. Start Miralax TID. D/C oxycodone on 10/02 BM on evening of 10/02 and afternoon 10/03. Will decrease Miralax to once a day. Molluscum contagiosum 09/24/20112010 Overview (09/28/2011): Onset Jun 2011; few lesions, left upper and lower eyelids, no inflammatory reaction Social History Tobacco Use Types Packs/Day Years Used Date Smoking Tobacco: Never Alcohol Use Standard Drinks/Week Comments No 0 (1 standard drink = 0.6 oz pur e alcohol) Comments No Sex and Gender Information Value Date Recorded Sex Assigned at Not on file Legal Sex Female 5:39 AM [employer] Gender Identity Not on file Sexual Orientation Not on file Last Filed Vital Signs Vital Sign Reading Time Taken Comments Blood Pressure 138/100 12/03/2016 6:41 PM SHOP CLERK Pulse 78 12/03/2016 6:40 PM SHOP CLERK Temperature 36.9 C (98.5 F) 12/03/2016 6:41 PM SHOP CLERK Respiratory Rate 16 12/03/2016 6:40 PM SHOP CLERK Oxygen Saturation 100% 09/30/2011 8:46 PM SHOP CLERK Inhaled Oxygen Concentration - - Weight 106.5 kg (234 lb 12.6 oz) 12/03/2016 4:01 PM SHOP CLERK Height 165.9 cm (5' 5.32) 01/11/2012 1 0:28 AM CDT Body Mass Index - - Plan of Treatment Health Maintenance Due Date Last Done Comments HIV SCREENING 2014 HPV VACCINE (1 - 3-dose series) 2014 CHLAMYDIA/GONORRHEA SCREENING 2015 HEPATITIS C SCREENING 07/06/2017 DTAP/TDAP/TD VACCINES (1 - Tdap) 2018 HEPATITIS B VACCINE (1 of 3 - 19+ 3-dose series) 2018 COVID-19 VACCINE (1 - 2023-2 5 season) 2024 DEPRESSION SCREENING 10/28/2024 INFLUENZA VACCINE (Season Ended) 2025 ZOSTER VACCINE (1 of 2) 2049 HIB VACCINE Aged Out No longer eligi ble based on patient's age to complete this topic MENINGOCOCCAL (Group B) VACC INE SHARED DECISION-MAKING Aged Out No longer eligibl e based on patient's age to complete this topic MENINGOCOCCAL GROUPS A/C/Y/W VACCINE Aged Out No longer eligible b ased on patient's age to complete this topic PNEUMOCOCCAL VACCINE Aged Out No long er eligible based on patient's age to complete this topic Insurance [facility] Care Teams Hardware Installation Coordinator Relationship Specialty Start Date End Date Pa Lehman MD [facility] [place] [address] PCP - General 09/24/11
[2025-04-05 19:52] LABS: Alanine Aminotransferase 24 U/L (6-35); Albumin Level 4.4 g/dL (3.5-5.1); Alkaline Phosphatase 127 U/L (38-126); Anion Gap 10 mmol/L (4-12); Aspartate Amino Transferase 39 U/L (14-36); Bilirubin,Total 0.6 mg/dL (0.2-1.3); Blood Urea Nitrogen 9 mg/dL (7-17); Calcium 9.1 mg/dL (8.4-10.2); Carbon Dioxide 25 mmol/L (22-30); Chloride 103 mmol/L (98-107); Cholesterol 164 mg/dL (0-200); Estimated Glomerular Filt Rate > 60; Glucose 84 mg/dL (65-110); HDL Direct 40 mg/dL; Sodium 138 mmol/L (137-145); Total Protein 7.7 g/dL (6.3-8.2); Triglycerides 156 mg/dL (<150)
[2025-04-05 20:03] LABS: LDL Cholesterol Direct 84 mg/dL
[2025-04-05 20:19] LABS: Basophils Percent Auto 0.5 % (0.2-1.2); Eosinophils Absolute Auto 0.1 K/mm3 (0-0.3); Eosinophils Percent Auto 1.3 % (0-4.4); Immature Granulocyte Absolute 0.03 K/mm3 (0.00-0.031); Immature Granulocyte Percent A 0.4 % (0-0.5); Lymphocytes Absolute Auto 2.18 K/mm3 (0.9-3.2); Lymphocytes Percent Auto 27.8 % (18.3-44.2); Mean Corpuscular HGB Conc 27.3 g/dl (32-36); Mean Corpuscular Hemoglobin 20.6 pg (26-34); Mean Corpuscular Volume 75.5 fl (80-100); Mean Platelet Volume 9.9 fl (7.4-10.4); Monocytes Absolute Auto 0.4 K/mm3 (0.1-0.6); Monocytes Percent Auto 4.7 % (2.6-8.5); Neutrophils Absolute Auto 5.1 K/mm3 (1.3-6.7); Neutrophils Percent Auto 65.3 % (45.5-73.1); Platelet Count Result 374 k/mm3 (150-375); Red Blood Count 4.37 M/mm3 (4.2-5.4); Red Cell Distribution Width 18.6 % (11.5-14.5); White Blood Count 7.9 K/mm3 (4.5-10.0)
[2025-04-05 20:32] LABS: Hypochromasia 1+; Ovalocytes 1+; Platelet Estimate Adequate (Adequate); Schistocytes None Seen
[2025-04-05 20:44] LABS: Free T4 Free Thyroxine 1.19 ng/dL (0.78-2.19)
[2025-04-05 20:58] LABS: Folic Acid 5.8 ng/mL (2.76->20)
[2025-04-05 21:14] LABS: Vitamin D 25 Hydroxy < 12.8 ng/mL
[2025-04-05 21:26] LABS: Hemoglobin A1C 4.4 % (<5.7)
[2025-04-08 02:08] LABS: Insulin Level Total 32.9 uIU/mL
== END 2025-04-05 13:20 | disposition home or self-care (01) ==
PROVIDERS: PCP Physician Assistant; Visit Provider Physician Assistant
DX: Z13.220 Encounter for screening for lipoid disorders (principal); Z13.1 Encounter for screening for diabetes mellitus; E55.9 Vitamin D deficiency, unspecified; Z68.43 Body mass index [BMI] 50.0-59.9, adult; Z79.899 Other long term (current) drug therapy
CPT/HCPCS: 36415; 80053; 80061; 82306; 82607; 82746; 83036; 83525; 84439; 84443; 85025